=== PATIENT | male | born 1935 | race African-American/Black ===

== ENCOUNTER 2018-02-06 10:54 | Observation (INO) | payer OTHER ==
--- NOTE | 2018-02-06 11:06 | PDOC ---
History of Present Illness - General Chief Complaint: Syncope/Near Syncope Stated Complaint: SYNCOPE Time Seen by Provider: 02/06/18 10:58 - History of Present Illness Initial Comments: 02/06/18 11:14 The patient is an 82 year old male with PMH of HTN, HLD, DM who presents for evaluation of a pre-syncopal episode. The patient is accompanied by his who assists in providing the history. They note that they were eating breakfast when the patient's noted that he started to lean back and become very weak. She states that she went and caught the patient and lowered him to the floor and that he never lost consciousness. The patient states that he remembers the whole event and notes that he became extremely generally weak during the event. He states that his symptoms have somewhat improved since presenting to the ED. He otherwise denies fevers, chills, SOB, chest pain, headache, numbness, tingling, focal weakness, nausea, vomiting, abdominal pain, or changes with urination or bowel movements. Past History - Past Medical History Allergies/Adverse Reactions: Allergies Allergy/AdvReac Type Severity Reaction Status Date / Time No Known Allergies Allergy Verified 02/06/18 11:07 Home Medications: Ambulatory Orders Amlodipine Besylate 5 mg PO DAILY 02/06/18 Donepezil HCl 10 mg PO HS 02/06/18 Dorzolamide HCl [Trusopt] 10 ml OP ASDIR 02/06/18 Lisinopril [Prinivil -] 40 mg PO DAILY 02/06/18 Metformin HCl [Glucophage] 1,000 mg PO ASDIR 02/06/18 Simvastatin 40 mg PO HS 02/06/18 Terazosin HCl 10 mg PO HS 02/06/18 Review of Systems - Review of Systems Comments:: 02/06/18 11:18 Constitutional: Generalized Weakness. No fevers, chills, malaise HEENT: No Rhinorrhea, nasal congestion, visual changes Cardiovascular: Lightheadedness, Pre-Syncope. No chest pain, syncope, palpitations, Respiratory: No Cough, SOB, Hemoptysis, Gastrointestinal: No Abdominal pain, Nausea, Vomiting, Constipation, Diarrhea, Melena Genitourinary: No Dysuria, Frequency, Urgency, Hesitancy, Hematuria, Flank pain Musculoskeletal: No Myalgia, arthralgia Skin: No rashes, itching, bruising, pallor Neurologic: No Headache, Dizziness, Numbness, Focal Weakness, or Tingling Psychiatric: No Hallucinations. No SI or HI *Physical Exam - Physical Exam Comments: 02/06/18 11:19 General Appearance: Nourished. No Apparent Distress HEENT: EOMI, AMY. No Pharyngeal Erythema, Tonsillar Exudate, Tonsillar Erythema Neck: No Cervical Lymphadenopathy Respiratory/Chest: Lungs Clear, Normal Breath Sounds. No Crackles, Rales, Rhonchi, Wheezing Cardiovascular: Regular Rhythm, Regular Rate. No Murmur, Gallops, Rubs Gastrointestinal/Abdominal: Normal Bowel Sounds, Soft. No Guarding, Rebound, Tenderness Musculoskeletal: No CVA Tenderness Extremity: Normal Capillary Refill Integumentary: Normal Color, Dry, Warm Neurologic: it application support analyst II-XII NML intact, Fully Oriented, Alert, Normal Mood/Affect, Normal Response, Motor Strength 5/5. Normal Finger to Nose and Heel to Barrett Heart Score/ECG Review #1 ECG reviewed & interpreted by me at: 11:48 (STEMI) General ECG Interpretation: Sinus Rhythm, Normal Rate, Normal Intervals 02/06/18 11:49 ST elevations noted to leads V3-V6 STEMI #2 ECG reviewed & interpreted by me at: 14:16 General ECG Interpretation: Sinus Rhythm, Normal Rate, Normal Intervals Compared to previous ECG there are: No significant change 02/06/18 14:16 ST Elevations in leads V3-V6 No Changes from prior ED Treatment Course - LABORATORY CBC & Chemistry Diagram: 02/06/18 11:30 02/06/18 11:30 Medical Decision Making - Medical Decision Making 02/06/18 11:19 The patient is an 82 year old male with PMH of HTN, HLD, DM who presents for evaluation of a pre-syncopal episode. Differential includes but is not limited to: ACS, Arrhythmia, UTI, Infectious, Metabolic Derangement. Given the patient' s history and physical exam, we will obtain a cbc, cmp, troponin, chest plain film, ua, ekg to evaluate further. We will continue to closely monitor and reassess while here in the ED. The patient will be a likely admission for pre- syncope given his age and risk factors. 02/06/18 11:49 Patient noted to have ST elevations on EKG consistent with a STEMI. We will discuss the case with [facility] for transfer. 02/06/18 12:25 We discussed the case with the auto rebuilder at [facility] who reviewed the patient's EKG and does not believe the patient is experiencing a STEMI and does note require cardiac cath at this time. CBC is unremarkable. CMP demonstrates a potassium of 3.2, Calcium of 6.6, Troponin is negative. The patient will require tele admission for further monitoring and cardiology consultation. The patient remains asymptomatic on exam here in the ED. 02/06/18 14:15 We discussed the case with Dr. Max who is aware of the case and requests that we obtain an echo for further evaluation. We discussed the case with the hospitalist team who accepted the patient for admission. *DC/Admit/Observation/Transfer Diagnosis at time of Disposition: Syncope Qualifiers: Syncope type: unspecified Qualified Code(s): R55 - Syncope and collapse - Discharge Dispostion Condition at time of disposition: Fair Decision to Admit order: Yes - Referrals - Patient Instructions - Post Discharge Activity
--- NOTE | 2018-02-06 11:13 | PDOC ---
Attending Attestation - Resident Resident Name: Pardeep Purcell - ED Attending Attestation I have performed the following: I have examined & evaluated the patient, The case was reviewed & discussed with the resident, I agree w/resident's findings & plan, Exceptions are as noted - HPI HPI: 02/06/18 11:48 82 year old M c/ hx of HTN, DM, HLD BIBEMS for syncope. The patient was in his usual state of health. Was sitting at breakfast, when he suddenly had a brief syncopal episode. No chest pain or SOB or palpitations. Woke up and in his baseline. Called 911 and pt was brought to the ED. - Physicial Exam PE: 02/06/18 11:49 GENERAL: Awake, alert, and fully oriented, in no acute distress HEAD: No signs of trauma EYES: PERRLA, EOMI, sclera anicteric, conjunctiva clear ENT: Auricles normal inspection, hearing grossly normal, nares patent, NECK: Normal ROM, supple, LUNGS: Breath sounds equal, clear to auscultation bilaterally. No wheezes, and no crackles HEART: Regular rate and rhythm, normal S1 and S2, no murmurs, rubs or gallops ABDOMEN: Soft, nontender, No guarding, no rebound. No masses EXTREMITIES: Normal range of motion, no edema. No clubbing or cyanosis. No cords, erythema, or tenderness NEUROLOGICAL: Cranial nerves II through XII grossly intact. Normal speech SKIN: Warm, Dry, normal turgor, no rashes or lesions noted. - Medical Decision Making 02/06/18 11:49 Vital Signs Temp Pulse Resp BP Pulse Ox 97.9 F 57 L 16 137/73 98 02/06/18 11:08 02/06/18 11:08 02/06/18 11:08 02/06/18 11:08 02/06/18 11:08 Pt presents with syncope. ECG shows STEMI Code Red alerted and [facility] contacted Will transfer the patient stat. [facility] transfer contacted. 02/06/18 12:15 Case discussed with [facility] television director Dr. Barnard. ECG sent over to the doctor. At this time, no intervention required. He suspects that this is repolarization. Particularly given the no chest pain, recommends serial troponins and no transfer. Pt's initial troponin is negative. However, will admit patient given these symptoms. 02/06/18 12:30 Calcium noted to be 6.6. But corrected for hypoalbuminemia, it is 7.8. 02/06/18 15:06 Repletion of magnesium and potassium ordered. Heart Score/ECG Review #1 ECG reviewed & interpreted by me at: 11:45 02/06/18 11:46 NSR 65, normal axis, normal intervals, YESSICA II, avF, V3-V6, QTC 403 msec #2 ECG reviewed & interpreted by me at: 13:15 02/06/18 13:13 NSR 67, no std/yessica, TWI avL, normal axis, normal intervals, QTC 409 msec
[2018-02-06 11:43] LABS: BASO % 0.7 % (0-2.0); EOS % 2.2 % (0-4.5); HEMOGLOBIN 12.2 GM/dl (11.7-16.9); MCH 34.7 pg (25.7-33.7); MCHC 34.9 g/dl (32.0-35.9); MEAN CELL VOLUME 99.4 fl (80-96); MEAN PLT VOLUME 8.8 fl (7.5-11.1); MONO % 4.3 % (3.8-10.2); NEUT % 66.8 % (42.8-82.8); PLATELET COUNT 153 K/MM3 (134-434); RBC 3.52 M/mm3 (4.00-5.60); RDW 11.4 % (11.9-15.9); WHITE BLOOD COUNT 6.5 K/mm3 (4.0-10.8)
[2018-02-06 11:52] LABS: ALBUMIN 2.5 g/dl (3.5-5.0); ALK PHOS 53 U/L (32-92); ANION GAP 7 MMOL/L (8-16); BILIRUBIN,TOTAL 0.9 mg/dl (0.2-1.0); BLOOD UREA NITROGEN 15 mg/dl (7-18); CHLORIDE 112 mmol/L (98-107); CO2 18 mmol/L (22-28); CREATININE 0.7 mg/dl (0.6-1.3); GLUCOSE,RANDOM 200 mg/dl (74-106); POTASSIUM 3.2 mmol/L (3.5-5.1); SGOT/AST 16 U/L (10-42); SGPT/ALT 11 U/L (10-40); SODIUM 137 mmol/L (136-145); TOT PROT 4.9 g/dl (6.4-8.3)
[2018-02-06 11:55] LABS: CALCIUM 6.6 mg/dl (8.4-10.2)
[2018-02-06 13:45] LABS: MAGNESIUM 1.1 mg/dL (1.8-2.4); PHOSPHOROUS 2.9 mg/dl (2.5-4.6)
[2018-02-06] MEDS ORDERED: MAGNESIUM SULF 50% (8.12 MEQ/2 ML-1 GM VIAL) IVPB ONE (15:06)
[2018-02-06] MEDS ORDERED: POTASSIUM CHLORIDE TABS 20 MEQ TABLET.ER (FP) PO ONE ×2 (15:06→15:08)
[2018-02-06] MEDS ORDERED: MAGNESIUM SULF 50% (8.12 MEQ/2 ML-1 GM VIAL) ONE ×2 (15:07→15:08)
--- NOTE | 2018-02-06 15:44 | ECHO ---
Name: IVIS NAYLOR Exam:Adult Echocardiogram Study Date: 02/06/2018 02:20 PM Age: 82 yrs Reason For Study: SYNCOPE Height: 63 in Weight: 161 lb BSA: 1.8 m2 MMode/2D Measurements & Calculations IVSd: 1.2 cm Ao root diam: 3.0 cm LVIDd: 3.6 cm LA dimension: 2.2 cm LVIDs: 2.4 cm LVPWd: 1.2 cm EDV(Teich): 54.6 ml ESV(Teich): 19.7 ml Doppler Measurements & Calculations MV E max agustin: 69.9 cm/sec MV A max agustin: 100.2 cm/sec MV dec slope: 403.5 cm/sec2 MV E/A: 0.70 TR max agustin: 229.4 cm/sec PI end-d agustin: 99.4 cm/sec TR max P.5 mmHg Left Ventricle There is mild concentric left ventricular hypertrophy. Left ventricular systolic function is normal. Ejection Fraction = 55-60%. Right Ventricle The right ventricle is normal in size and function. Atria Normal left and right atrial size and function. Mitral Valve The mitral valve is normal in structure and function. There is no mitral valve stenosis. There is no mitral regurgitation noted. Tricuspid Valve The tricuspid valve is normal in structure and function. There is mild tricuspid regurgitation. Aortic Valve There is mild aortic sclerosis.;. No hemodynamically significant valvular aortic stenosis. Mild aorti c regurgitation. Pulmonic Valve The pulmonic valve is not well seen, but is grossly normal. There is no pulmonic valvular stenosis. Great Vessels The aortic root is normal size. Pericardium/Pleura There is no pericardial effusion. Interpretation Summary There is mild concentric left ventricular hypertrophy. Left ventricular systolic function is normal. Ejection Fraction = 55-60%. The right ventricle is normal in size and function. The mitral valve is normal in structure and function. There is mild tricuspid regurgitation. There is mild aortic sclerosis.; Mild aortic regurgitation. There is no pericardial effusion. MD Palmer *Susan 02/06/2018 03:44 PM
--- NOTE | 2018-02-06 17:12 | HP ---
CHIEF COMPLAINT: I almost passed out after eating breakfast [place] [facility] [place]ISTORY OF PRESENT ILLNESS: Patient is an 82 year old male with a significant past medical history of hypertension, hyperlipidemia, diabetes and left eye blindness. Patient and state that patient was in his usual state of health last night and early this morning. However, later in the morning patient consumed his breakfast and then noticed that he began to move his head up and down as if he was stretching his neck. then noticed that patient leaned back and became lethargic. He then vomited up his breakfast and became pale and lethargic. reports that patient did not lose consciousness. She states that she lowered him to the floor and called 911. His blood sugar was 176 during the episode. Patient recalls the event this morning and verbalizes feelings of weakness during the episode but denied any chest pain or shortness of breath. His symptoms have since improved and he is back to his baseline. During exam, patient was standing by the bedside and conversing with his family. Patient denies chills, SOB, chest pain, headache, numbness, tingling, focal weakness, nausea, vomiting, abdominal pain, or changes with urination or bowel movements. Patient was initially seen at [place] [facility] and was transferred to [facility] after he had 3 abnormal EKG readings which showed STEMI. In [place], a code red was alerted and [facility] cardiac cath was contacted. [facility] ER attending discussed case with [facility] IR Dr Barnard and EKG was reviewed. At that time, no transfer to [facility] was recommended as patient did not have have chest pain and his troponins remain negative. It was felt that patient likely had repolarization. EKGs: 1. NSR 65, normal axis, normal intervals, YESSICA II, avF, leads v3-v6, QTc 405 2. NSR 67, no std/yessica, TWI avL, normal axis, normal intervals, QTc 409 Recent Travel: none PAST MEDICAL HISTORY: hypertension, hyperlipidemia, diabetes and left eye blindness PAST SURGICAL HISTORY: Social History: Smoking: denies Alcohol: none reported Drugs: none Family History: Allergies No Known Allergies Allergy (Verified 02/06/18 11:07) HOME MEDICATIONS: Home Medications Medication Instructions Recorded Amlodipine Besylate 5 mg PO DAILY 02/06/18 Donepezil HCl 10 mg PO HS 02/06/18 Dorzolamide/Timolol/Pf 1 each OD BID 02/06/18 [Dorzolamide-Timolol 2%-0.5%] Latanoprost 0.005% Eye Drops 1 drop OD HS 02/06/18 [Xalatan 0.005% Eye Drops -] Lisinopril [Prinivil -] 40 mg PO DAILY 02/06/18 Metformin HCl [Glucophage] 1,000 mg PO DAILY 02/06/18 Simvastatin 40 mg PO HS 02/06/18 Terazosin HCl 10 mg PO HS 02/06/18 PHYSICAL EXAMINATION Vital Signs - 24 hr 02/06/18 02/06/18 02/06/18 11:08 12:53 15:00 Temperature 97.9 F Pulse Rate 57 L Pulse Rate [ 63 Apical] Respiratory 16 19 Rate Blood Pressure 137/73 Blood Pressure 109/64 [Arm] O2 Sat by Pulse 98 98 100 Oximetry (%) 02/06/18 15:01 Temperature 97.9 F Pulse Rate 73 Pulse Rate [ Apical] Respiratory 18 Rate Blood Pressure 136/62 Blood Pressure [Arm] O2 Sat by Pulse Oximetry (%) GENERAL: Awake, alert, and fully oriented, in no acute distress. HEAD: Normal with no signs of trauma. EYES: left eye blindness EARS, NOSE, THROAT: Ears normal, nares patent, oropharynx clear without exudates. Moist mucous membranes. NECK: Normal range of motion, supple without lymphadenopathy, JVD, or masses. LUNGS: Breath sounds equal, clear to auscultation bilaterally. No wheezes, and no crackles. No accessory muscle use. HEART: Regular rate and rhythm ABDOMEN: Soft, nontender, not distended, normoactive bowel sounds, no guarding, no rebound, no masses. No hepatomegaly or splenomegaly. MUSCULOSKELETAL: Normal range of motion at all joints. No bony deformities or tenderness. No CVA tenderness. UPPER EXTREMITIES: No peripheral edema. LOWER EXTREMITIES: No peripheral edema. NEUROLOGICAL: Normal speech. Normal gait. PSYCHIATRIC: Cooperative. Good eye contact. Appropriate mood and affect. SKIN: Warm, dry, normal turgor, no rashes or lesions noted, normal capillary refill. Laboratory Results - last 24 hr 02/06/18 02/06/18 02/06/18 11:30 11:30 11:30 WBC 6.5 RBC 3.52 L Hgb 12.2 Hct 35.0 L MCV 99.4 H MCH 34.7 H MCHC 34.9 RDW 11.4 L Plt Count 153 MPV 8.8 Absolute Neuts (auto) 4.4 Neutrophils % 66.8 Lymphocytes % 26.0 Monocytes % 4.3 Eosinophils % 2.2 Basophils % 0.7 Sodium 137 Potassium 3.2 L Chloride 112 H Carbon Dioxide 18 L Anion Gap 7 L BUN 15 Creatinine 0.7 Creat Clearance w eGFR > 60 Random Glucose 200 H Calcium 6.6 L* Phosphorus Magnesium Total Bilirubin 0.9 AST 16 ALT 11 Alkaline Phosphatase 53 Creatine Kinase Troponin I < 0.03 Total Protein 4.9 L Albumin 2.5 L 02/06/18 02/06/18 02/06/18 11:30 12:55 14:51 WBC RBC Hgb Hct MCV MCH MCHC RDW Plt Count MPV Absolute Neuts (auto) Neutrophils % Lymphocytes % Monocytes % Eosinophils % Basophils % Sodium Potassium Chloride Carbon Dioxide Anion Gap BUN Creatinine Creat Clearance w eGFR Random Glucose Calcium Phosphorus 2.9 Magnesium 1.1 L Total Bilirubin AST ALT Alkaline Phosphatase Creatine Kinase 49 Troponin I < 0.03 Total Protein Albumin ASSESSMENT/PLAN: Patient is an 82 year old male with a significant past medical history of hypertension, hyperlipidemia, diabetes and left eye blindness. Patient and state that patient was in his usual state of health last night and early this morning. However, later in the morning patient consumed his breakfast and then noticed that he began to move his head up and down as if he was stretching his neck. then noticed that patient leaned back and became lethargic. He then vomited up his breakfast and became pale and lethargic. reports that patient did not lose consciousness. She states that she lowered him to the floor and called 911. His blood sugar was 176 during the episode. Patient was initially seen at [place] [facility] and was transferred to [facility] after he had 3 abnormal EKG readings which showed STEMI. In [place], a code red was alerted and [facility] cardiac cath was contacted. [facility] ER attending discussed case with [facility] ANA Barnard and EKG was reviewed. At that time, no transfer to [facility] was recommended as patient did not have have chest pain and his troponins remain negative. It was felt that patient likely had repolarization. imagin. NSR 65, normal axis, normal intervals, YESSICA II, avF, leads v3-v6, QTc 405 2. NSR 67, no std/yessica, TWI avL, normal axis, normal intervals, QTc 409 Syncope and collapse Abnormal serial EKGs Monitor on tele, cardiology consulted and notified by the ED physician at [facility] Monitor bgms serial ekgs Cardiology abnormal ekgs No c/o of chest pain or shortness of breath Patient denies any dizziness, jaw pain or nausea/vomiting Cardiology consulted Continue to monitor trops Electrolyte imbalance Hypocalcemia corrected at 7.8. add calcium supplements Magnesium 1.1, repleted. repeat labs ordered for tonight Potassium repeat tonight. Endocrine Diabetes hmga1c in a.m hold metformin, start Novolog fen tolerating po monitor electrolytes diabetic diet prophy ambulation add heparin if pt los >48 hrs full code Visit type - Emergency Visit Emergency Visit: Yes ED Registration Date: 02/06/18 Care time: The patient presented to the Emergency Department on the above date and was hospitalized for further evaluation of their emergent condition. - New Patient This patient is new to me today: Yes Date on this admission: 02/06/18 - Critical Care Critical Care patient: No
[2018-02-06 18:17] VITALS: BMI 20.4
--- NOTE | 2018-02-06 18:36 | CON.CARD ---
Consult Consult Specialty:: cardiology Reason for Consultation:: syncope - History of Present Illness Chief Complaint: Pt is A&Ox3; surrounded by and children; asymptomatic presently. History of Present Illness: The patient is an 82 year old black male (b. [place]), with PMH of HTN, HLD, DM , left eye blindness (hx cataract surgery; ?glaucoma, diabetic disease-->left eye blindness) who presents for evaluation of a pre-syncopal episode. The patient is accompanied by his who assists in providing the history. They note that they were eating breakfast when the patient's noted that he started to lean back and become very weak. She states that she went and caught the patient and lowered him to the floor; it is uncertain whether he lost consciousness. The patient states that he remembers the whole event and notes that he became extremely generally weak during the event. He states that his symptoms have somewhat improved since presenting to the ED. He otherwise denies fevers, chills, SOB, chest pain, headache, numbness, tingling, focal weakness, nausea, vomiting, abdominal pain, or changes with urination or bowel movements. 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 - History Source History Provided By: Patient, Family Member, Medical Record Limitations to Obtaining History: No Limitations - Past Medical History HEALTH CENTER ASSISTANT: Yes: Other (memory lapses-->Aricept; left eye blindness) Cardio/Vascular: Yes: Aortic Insufficiency, CHF (diastolic), HTN Pulmonary: No: Asthma Heme/Onc: Yes: Anemia Psych: Yes: Other (memory lapses) - Past Surgical History Past Surgical History: Yes: Cataract Removal - Alcohol/Substance Use Hx Alcohol Use: No - Smoking History Smoking history: Never smoked Have you smoked in the past 12 months: No Home Medications - Allergies Allergies/Adverse Reactions: Allergies Allergy/AdvReac Type Severity Reaction Status Date / Time No Known Allergies Allergy Verified 02/06/18 11:07 - Home Medications Home Medications: Ambulatory Orders Amlodipine Besylate 5 mg PO DAILY 02/06/18 Donepezil HCl 10 mg PO HS 02/06/18 Dorzolamide/Timolol/Pf [Dorzolamide-Timolol 2%-0.5%] 1 each OD BID 02/06/18 Latanoprost 0.005% Eye Drops [Xalatan 0.005% Eye Drops -] 1 drop OD HS 02/06/18 Lisinopril [Prinivil -] 40 mg PO DAILY 02/06/18 Metformin HCl [Glucophage] 1,000 mg PO DAILY 02/06/18 Simvastatin 40 mg PO HS 02/06/18 Terazosin HCl 10 mg PO HS 02/06/18 Family Disease History - Family Disease History Family History: Denies Review of Systems - Review of Systems Constitutional: reports: Weakness Eyes: reports: Other (left eye blindness) HENT: reports: No Symptoms Neck: reports: No Symptoms Cardiovascular: reports: No Symptoms Respiratory: reports: No Symptoms Gastrointestinal: reports: No Symptoms Genitourinary: reports: No Symptoms Breasts: reports: No Symptoms Reported Musculoskeletal: reports: No Symptoms Integumentary: reports: No Symptoms Neurological: reports: Weakness Endocrine: reports: No Symptoms Hematology/Lymphatic: reports: No Symptoms Psychiatric: reports: No Symptoms - Risk Factors Known Risk Factors: Yes: Age, Diabetes Mellitus, Gender, Hypercholesterolemia, Hypertension, Physical Inactivity Vital Signs: Vital Signs Temperature 97.7 F 02/06/18 18:13 Pulse Rate 70 02/06/18 18:13 Respiratory Rate 18 02/06/18 18:13 Blood Pressure 134/73 02/06/18 18:13 O2 Sat by Pulse Oximetry (%) 100 02/06/18 18:00 Constitutional: Yes: Well Nourished, Calm Eyes: Yes: Other (left eye closed; blind in left eye) HENT: Yes: WNL Neck: Yes: WNL Respiratory: Yes: WNL Gastrointestinal: Yes: Soft Renal/: No: Anuria Cardiovascular: Yes: Regular Rate and Rhythm JVD: No Carotid Bruit: No PMI: Non-Displaced Heart Sounds: Yes: S1, S2 Murmur: Yes: Diastolic Murmur, Grade 1 Musculoskeletal: Yes: Muscle Weakness Extremities: Yes: WNL Edema: No Peripheral Pulses WNL: Yes Integumentary: Yes: WNL Neurological: Yes: Alert, Weakness Psychiatric: Yes: Alert - Other Data Labs, Other Data: CBC, BMP 02/06/18 11:30 Troponin, BNP 02/06/18 02/06/18 11:30 14:51 Troponin I < 0.03 < 0.03 Troponin, BNP 02/06/18 02/06/18 11:30 14:51 Troponin I < 0.03 < 0.03 Abnormal Lab Results 02/06/18 02/06/18 02/06/18 11:30 11:30 12:55 RBC 3.52 L Hct 35.0 L MCV 99.4 H MCH 34.7 H RDW 11.4 L Potassium 3.2 L Chloride 112 H Carbon Dioxide 18 L Anion Gap 7 L BUN Random Glucose 200 H Calcium 6.6 L* Magnesium 1.1 L Total Protein 4.9 L Albumin 2.5 L 02/06/18 18:00 RBC Hct MCV MCH RDW Potassium Chloride Carbon Dioxide Anion Gap 7 L BUN 22 H Random Glucose 146 H Calcium Magnesium Total Protein Albumin Ejection Fraction %: LVEF > or = 40 % Imaging - Results Chest X-ray: Image Reviewed (no acute cardiopulmonary changes; spinal arthritis) Ultrasound: Report Reviewed (ECHO: normal LVEF; mild LVH; mild AR) EKG: Image Reviewed (NSR) Problem List - Problems (1) Pre-syncope Assessment/Plan: TNI 0.03 ECHO: normal LVEF; mild LVH; mild AR and TR. F/u on telemetry; f/u EKG. Orthostatic vital signs. Avoid dehydration. Stress test when stable (multiple CAD risks; sedentary; now with pre-syncope). Code(s): R55 - SYNCOPE AND COLLAPSE (2) HTN (hypertension) Assessment/Plan: on lisinopril and amlodipine. Code(s): I10 - ESSENTIAL (PRIMARY) HYPERTENSION (3) Hyperlipidemia Assessment/Plan: on statin; f/u lipid profile. Code(s): E78.5 - HYPERLIPIDEMIA, UNSPECIFIED (4) Diabetes Code(s): E11.9 - TYPE 2 DIABETES MELLITUS WITHOUT COMPLICATIONS (5) Sedentary lifestyle Code(s): Z91.89 - [facility] PERSONAL RISK FACTORS, NOT ELSEWHERE CLASSIFIED (6) Blindness of one eye Code(s): H54.40 - BLINDNESS, ONE EYE, UNSPECIFIED EYE (7) Anemia Code(s): D64.9 - ANEMIA, UNSPECIFIED (8) Spinal arthritis Assessment/Plan: on Vit D and calcium Code(s): M47.819 - SPONDYLOSIS WITHOUT MYELOPATHY OR RADICULOPATHY, SITE [facility]
[2018-02-06 19:32] LABS: ALBUMIN 3.7 g/dl (3.4-5.0); ALK PHOS 96 U/L (45-117); BILIRUBIN,TOTAL 0.7 mg/dL (0.2-1); BLOOD UREA NITROGEN 22 mg/dL (7-18); CALCIUM 9.8 mg/dL (8.5-10.1); CHLORIDE 105 mmol/L (98-107); CREATININE 0.9 mg/dL (0.55-1.3); GLUCOSE,RANDOM 146 mg/dL (74-106); MAGNESIUM 2.4 mg/dL (1.8-2.4); POTASSIUM 4.5 mmol/L (3.5-5.1); SGOT/AST 15 U/L (15-37); SGPT/ALT 22 U/L (13-61); SODIUM 136 mmol/L (136-145); TOT PROT 7.5 g/dl (6.4-8.2)
[2018-02-06 19:33] LABS: ANION GAP 7 MMOL/L (8-16); CO2 25 mmol/L (21-32)
[2018-02-06] MEDS: ATORVASTATIN CA 20 MG TABLET (FP) PO SCH (21:49)
[2018-02-06] MEDS: TERAZOSIN HCL 5 MG CAPSULE PO SCH (21:49)
[2018-02-06] MEDS: DONEPEZIL HCL 10 MG TABLET (FP) PO SCH (21:50)
[2018-02-06] MEDS: INSULIN SLIDING SCALE (NOVOLOG) 1 VIAL SQ SCH (21:50)
[2018-02-06] MEDS: CALCIUM 500MG/VIT-D 200 UNITS COMBO TABLET (FP) PO SCH (21:50)
[2018-02-06] MEDS: LATANOPROST 0.005% OPHTH SOLN 2.5ML BOTTLE OD SCH (21:56)
[2018-02-06] MEDS ORDERED: PATIENT'S OWN MEDICATION (NON-FORMULARY) (Dorzolamide/Timolol/Pf [Dorzolamide-Timolol 2%-0 OD SCH (22:00)
[2018-02-07] MEDS: INSULIN SLIDING SCALE (NOVOLOG) 1 VIAL SQ SCH ×4 (06:26→21:15)
[2018-02-07 07:28] LABS: BASO % 0.5 % (0-2.0); EOS % 1.7 % (0-4.5); HEMATOCRIT 35.1 % (35.4-49); HEMOGLOBIN 12.3 GM/dL (11.7-16.9); LYMPH % 46.7 % (8-40); MCH 34.5 pg (25.7-33.7); MEAN CELL VOLUME 98.7 fl (80-96); MEAN PLT VOLUME 9.1 fl (7.5-11.1); MONO % 7.7 % (3.8-10.2); NEUT % 43.4 % (42.8-82.8); PLATELET COUNT 168 K/MM3 (134-434); RBC 3.55 M/mm3 (4.00-5.60); RDW 12.2 % (11.9-15.9); WHITE BLOOD COUNT 5.8 K/mm3 (4.0-10.0)
[2018-02-07 08:47] LABS: CO2 26 mmol/L (21-32); CREATININE 0.8 mg/dL (0.55-1.3)
[2018-02-07 08:48] LABS: ALBUMIN 3.5 g/dl (3.4-5.0)
[2018-02-07 09:17] LABS: ALK PHOS 83 U/L (45-117); ANION GAP 6 MMOL/L (8-16); BLOOD UREA NITROGEN 19 mg/dL (7-18); CALCIUM 9.3 mg/dL (8.5-10.1); CHLORIDE 106 mmol/L (98-107); CHOLESTEROL 117 mg/dL (50-200); GLUCOSE,RANDOM 145 mg/dL (74-106); HDL CHOLESTEROL 59 mg/dL (40-60); MAGNESIUM 1.7 mg/dL (1.8-2.4); POTASSIUM 4.3 mmol/L (3.5-5.1); SGOT/AST 13 U/L (15-37); SGPT/ALT 18 U/L (13-61); SODIUM 139 mmol/L (136-145); TRIGLYCERIDES 53 mg/dL (0-150)
[2018-02-07] MEDS ORDERED: MAGNESIUM OXIDE 400 MG TABLET (FP) PO ONE (09:54)
[2018-02-07] MEDS: CALCIUM 500MG/VIT-D 200 UNITS COMBO TABLET (FP) PO SCH ×2 (10:19→21:13)
[2018-02-07] MEDS: LISINOPRIL 20 MG TABLET (FP) PO SCH (10:19)
[2018-02-07] MEDS: amLODIPine BESYLATE 5 MG TABLET (FP) PO SCH (10:19)
--- NOTE | 2018-02-07 11:15 | PN ---
Progress Note (short form) - Note Progress Note: Subjective: --No acute events overnight Objective: Vital Signs 02/07/18 02/07/18 06:00 10:00 Temperature 97.9 F 98.0 F Pulse Rate 68 71 Respiratory 20 16 Rate Blood Pressure 132/72 126/59 L O2 Sat by Pulse 98 Oximetry (%) Gen: well appearing elderly male sitting upright in NAD HEENT: NC/AT Cardiac: S1/S2 no murmurs Pulm: clear breath sounds bilaterally Ext: WWP. No edema ECG: NSR 1st degree AVB. Nonspecific ST-T changes Echocardiogram: LVEF 55-60% with no regional wall motion abnormality. Active Medications Amlodipine Besylate (Norvasc -) 5 mg PO DAILY [facility] Last Admin: 02/07/18 10:19 Dose: 5 mg Atorvastatin Calcium (Lipitor -) 20 mg PO HS [facility] Last Admin: 02/06/18 21:49 Dose: 20 mg Calcium Carbonate/Cholecalciferol (Os-Scooter 500+D -) 1 tab PO BID [facility] Last Admin: 02/07/18 10:19 Dose: 1 tab Donepezil HCl (Aricept -) 10 mg PO [facility] Last Admin: 02/06/18 21:50 Dose: 10 mg Insulin Aspart (Novolog Vial Sliding Scale -) 1 vial SQ [facility]; Protocol Last Admin: 02/07/18 06:26 Dose: 2 units Latanoprost (Xalatan 0.005% Eye Drops -) 1 drop OD [facility] Last Admin: 02/06/18 21:56 Dose: 1 drop Lisinopril (Prinivil) 40 mg PO DAILY [facility] Last Admin: 02/07/18 10:19 Dose: 40 mg Non-Formulary Medication (Dorzolamide/Timolol/Pf [Dorzolamide-Timolol 2%-0.5%]) 1 each OD BID [facility] Terazosin HCl (Hytrin -) 10 mg PO 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 Currently hemodynamically stable with echocardiogram revealing normal systolic function, ruled out for acute coronary syndrome. #Pre-syncope/weakness Workup: --ECG normal sinus with 1st degree AVB, nonspecific ST-T changes --trop negative X4 --telemetry without significant event Treatment: --continue to monitor --please keep NPO on Friday night for nuclear stress test on Friday #HTN; continue lisinopril and amlodipine #HL; continue atorvastatin Pola Mckeon MD
--- NOTE | 2018-02-07 13:25 | EKG ---
Test Reason : Blood Pressure : / mmHG Vent. Rate : 062 BPM Atrial Rate : 062 BPM P-R Int : 210 ms QRS Dur : 086 ms QT Int : 390 ms P-R-T Axes : 053 051 068 degrees QTc Int : 395 ms SINUS RHYTHM WITH 1ST DEGREE A-V BLOCK NONSPECIFIC ST AND T WAVE ABNORMALITY ABNORMAL ECG WHEN COMPARED WITH ECG OF 06-FEB-2018 13:14, NO SIGNIFICANT CHANGE WAS FOUND Confirmed by JESSICA LEAL, JUDD ([id number]) on 02/07/2018 1:25:22 PM Referred By: Haley KNIGHT Confirmed By:JUDD LOPEZ MD
--- NOTE | 2018-02-07 13:28 | EKG ---
Test Reason : Blood Pressure : / mmHG Vent. Rate : 067 BPM Atrial Rate : 067 BPM P-R Int : 204 ms QRS Dur : 086 ms QT Int : 388 ms P-R-T Axes : 069 049 078 degrees QTc Int : 409 ms NORMAL SINUS RHYTHM ST ELEVATION CONSIDER LATERAL INJURY OR ACUTE INFARCT ACUTE [place] / STEMI ABNORMAL ECG WHEN COMPARED WITH ECG OF 06-FEB-2018 11:46, NO SIGNIFICANT CHANGE WAS FOUND Confirmed by JUDD LOPEZ MD ([id number]) on 02/07/2018 1:27:52 PM Referred By: ABHINAV Confirmed By:JUDD LOPEZ MD
--- NOTE | 2018-02-07 13:28 | EKG ---
Test Reason : Blood Pressure : / mmHG Vent. Rate : 065 BPM Atrial Rate : 065 BPM P-R Int : 204 ms QRS Dur : 086 ms QT Int : 388 ms P-R-T Axes : 068 053 074 degrees QTc Int : 403 ms NORMAL SINUS RHYTHM ST ELEVATION CONSIDER LATERAL INJURY OR ACUTE INFARCT ACUTE [place] / STEMI ABNORMAL ECG NO PREVIOUS ECGS AVAILABLE Confirmed by JESSICA LEAL, JUDD ([id number]) on 02/07/2018 1:28:16 PM Referred By: ABHINAV Confirmed By:JUDD LOPEZ MD
--- NOTE | 2018-02-07 16:55 | PN ---
Physical Exam: SUBJECTIVE: Patient seen and examined at the bedside. sitting up eating, family present wants to go home. but willing to stay for stress test friday OBJECTIVE: mag, K and calcium low. supplements added pt for stress test friday, npo at midnight friday Vital Signs Period Temp Pulse Resp BP Sys/Hester Pulse Ox Last 24 Hr 97.2 F-98.0 F 63-73 16-20 119-168/59-85 98-100 GENERAL: Awake, alert, and fully oriented, in no acute distress. HEAD: Normal with no signs of trauma. EYES: left eye blindness EARS, NOSE, THROAT: Ears normal, nares patent, oropharynx clear without exudates. Moist mucous membranes. NECK: Normal range of motion, supple without lymphadenopathy, JVD, or masses. LUNGS: Breath sounds equal, clear to auscultation bilaterally. No wheezes, and no crackles. No accessory muscle use. HEART: Regular rate and rhythm ABDOMEN: Soft, nontender, not distended, normoactive bowel sounds, no guarding, no rebound, no masses. No hepatomegaly or splenomegaly. MUSCULOSKELETAL: Normal range of motion at all joints. No bony deformities or tenderness. No CVA tenderness. UPPER EXTREMITIES: No peripheral edema. LOWER EXTREMITIES: No peripheral edema. NEUROLOGICAL: Normal speech. Normal gait. PSYCHIATRIC: Cooperative. Good eye contact. Appropriate mood and affect. SKIN: Warm, dry, normal turgor, no rashes or lesions noted, normal capillary refill. Laboratory Results - last 24 hr 02/06/18 02/06/18 02/07/18 18:00 21:29 05:37 WBC RBC Hgb Hct MCV MCH MCHC RDW Plt Count MPV Absolute Neuts (auto) Neutrophils % Lymphocytes % Monocytes % Eosinophils % Basophils % Nucleated RBC % Sodium 136 Potassium 4.5 Chloride 105 Carbon Dioxide 25 Anion Gap 7 L BUN 22 H Creatinine 0.9 Creat Clearance w eGFR > 60 POC Glucometer 250 156 Random Glucose 146 H Hemoglobin A1c % Calcium 9.8 Magnesium 2.4 Total Bilirubin 0.7 AST 15 ALT 22 Alkaline Phosphatase 96 Troponin I < 0.02 Total Protein 7.5 Albumin 3.7 Triglycerides Cholesterol Total LDL Cholesterol HDL Cholesterol TSH 02/07/18 02/07/18 02/07/18 06:00 06:00 06:00 WBC 5.8 RBC 3.55 L Hgb 12.3 Hct 35.1 L MCV 98.7 H MCH 34.5 H MCHC 35.0 RDW 12.2 Plt Count 168 MPV 9.1 Absolute Neuts (auto) 2.5 Neutrophils % 43.4 Lymphocytes % 46.7 H Monocytes % 7.7 Eosinophils % 1.7 Basophils % 0.5 Nucleated RBC % 0 Sodium 139 Potassium 4.3 Chloride 106 Carbon Dioxide 26 Anion Gap 6 L BUN 19 H Creatinine 0.8 Creat Clearance w eGFR > 60 POC Glucometer Random Glucose 145 H Hemoglobin A1c % 8.0 H Calcium 9.3 Magnesium 1.7 L Total Bilirubin 1.0 AST 13 L ALT 18 Alkaline Phosphatase 83 Troponin I < 0.02 Total Protein 7.0 Albumin 3.5 Triglycerides 53 Cholesterol 117 Total LDL Cholesterol 52 HDL Cholesterol 59 TSH 1.27 02/07/18 12:06 WBC RBC Hgb Hct MCV MCH MCHC RDW Plt Count MPV Absolute Neuts (auto) Neutrophils % Lymphocytes % Monocytes % Eosinophils % Basophils % Nucleated RBC % Sodium Potassium Chloride Carbon Dioxide Anion Gap BUN Creatinine Creat Clearance w eGFR POC Glucometer 272 Random Glucose Hemoglobin A1c % Calcium Magnesium Total Bilirubin AST ALT Alkaline Phosphatase Troponin I Total Protein Albumin Triglycerides Cholesterol Total LDL Cholesterol HDL Cholesterol TSH Active Medications Generic Name Dose Route Start Last Admin Trade Name Freq PRN Reason Stop Dose Admin Amlodipine Besylate 5 mg 02/07/18 10:00 02/07/18 10:19 Norvasc - PO 5 mg DAILY [facility] Administration Atorvastatin Calcium 20 mg 02/06/18 22:00 02/06/18 21:49 Lipitor - PO 20 mg HS [facility] Administration Calcium Carbonate/Cholecalciferol 1 tab 02/06/18 22:00 02/07/18 10:19 Os-Scooter 500+D - PO 1 tab BID [facility] Administration Donepezil HCl 10 mg 02/06/18 22:00 02/06/18 21:50 Aricept - PO 10 mg HS [facility] Administration Insulin Aspart 1 vial 02/06/18 22:00 02/07/18 16:51 Novolog Vial Sliding Scale - SQ Not Given ACHS [facility] Protocol Latanoprost 1 drop 02/06/18 22:00 02/06/18 21:56 Xalatan 0.005% Eye Drops - OD 1 drop HS [facility] Administration Lisinopril 40 mg 02/07/18 10:00 02/07/18 10:19 Prinivil PO 40 mg DAILY [facility] Administration Non-Formulary Medication 1 each 02/06/18 22:00 Dorzolamide/Timolol/Pf [Dorzolamide-Timolol 2%-0.5%] OD BID [facility] Terazosin HCl 10 mg 02/06/18 22:00 02/06/18 21:49 Hytrin - PO 10 mg HS [facility] Administration ASSESSMENT/PLAN: Patient is an 82 year old male with a significant past medical history of hypertension, hyperlipidemia, diabetes and left eye blindness. Patient and state that patient was in his usual state of health last night and early this morning. However, later in the morning patient consumed his breakfast and then noticed that he began to move his head up and down as if he was stretching his neck. then noticed that patient leaned back and became lethargic. He then vomited up his breakfast and became pale and lethargic. reports that patient did not lose consciousness. She states that she lowered him to the floor and called 911. His blood sugar was 176 during the episode. Patient was initially seen at [place] [facility] and was transferred to [facility] after he had 3 abnormal EKG readings which showed STEMI. In [place], a code red was alerted and [facility] cardiac cath was contacted. [facility] ER attending discussed case with [facility] Dr Barnard and EKG was reviewed. At that time, no transfer to [facility] was recommended as patient did not have have chest pain and his troponins remain negative. It was felt that patient likely had repolarization. imagin. NSR 65, normal axis, normal intervals, YESSICA II, avF, leads v3-v6, QTc 405 2. NSR 67, no std/yessica, TWI avL, normal axis, normal intervals, QTc 409 Syncope and collapse Abnormal serial EKGs No events on tele. continue to monitor. trops negative Monitor bgms serial ekgs Cardiology abnormal ekgs No c/o of chest pain or shortness of breath Patient denies any dizziness, jaw pain or nausea/vomiting Cardiology consulted and following patient for stress test friday Electrolyte imbalance Hypocalcemia, resolved hypomag, supplemented hypokalemia, resolved. Endocrine Diabetes hmga1c in a.m hold metformin, start Novolog fen tolerating po monitor electrolytes diabetic diet prophy ambulation add heparin if pt los >48 hrs full code Visit type - Emergency Visit Emergency Visit: Yes ED Registration Date: 02/06/18 Care time: The patient presented to the Emergency Department on the above date and was hospitalized for further evaluation of their emergent condition. - New Patient This patient is new to me today: No - Critical Care Critical Care patient: No - Discharge Referral Referred to [facility] Med P.C.: No
[2018-02-07] MEDS ORDERED: PT OWN MED DRAWER 7, Y5N ONE ×2 (21:06→21:14)
[2018-02-07] MEDS: ATORVASTATIN CA 20 MG TABLET (FP) PO SCH (21:13)
[2018-02-07] MEDS: TERAZOSIN HCL 5 MG CAPSULE PO SCH (21:13)
[2018-02-07] MEDS: DONEPEZIL HCL 10 MG TABLET (FP) PO SCH (21:15)
[2018-02-07] MEDS: LATANOPROST 0.005% OPHTH SOLN 2.5ML BOTTLE OD SCH (21:15)
[2018-02-08 06:25] LABS: BASO % 0.6 % (0-2.0); EOS % 1.7 % (0-4.5); HEMATOCRIT 36.5 % (35.4-49); HEMOGLOBIN 11.9 GM/dL (11.7-16.9); LYMPH % 39.5 % (8-40); MCH 32.6 pg (25.7-33.7); MCHC 32.7 g/dl (32.0-35.9); MEAN CELL VOLUME 99.7 fl (80-96); MEAN PLT VOLUME 8.9 fl (7.5-11.1); MONO % 6.2 % (3.8-10.2); PLATELET COUNT 163 K/MM3 (134-434); RBC 3.66 M/mm3 (4.00-5.60); RDW 12.3 % (11.9-15.9); WHITE BLOOD COUNT 6.8 K/mm3 (4.0-10.0)
[2018-02-08] MEDS: INSULIN SLIDING SCALE (NOVOLOG) 1 VIAL SQ SCH ×4 (06:38→21:15)
[2018-02-08 06:57] LABS: ALBUMIN 3.4 g/dl (3.4-5.0); ALK PHOS 73 U/L (45-117); ANION GAP 9 MMOL/L (8-16); BILIRUBIN,TOTAL 1.4 mg/dL (0.2-1); BLOOD UREA NITROGEN 22 mg/dL (7-18); CALCIUM 9.6 mg/dL (8.5-10.1); CHLORIDE 105 mmol/L (98-107); CO2 24 mmol/L (21-32); CREATININE 0.8 mg/dL (0.55-1.3); GLUCOSE,RANDOM 122 mg/dL (74-106); MAGNESIUM 1.7 mg/dL (1.8-2.4); SGOT/AST 13 U/L (15-37); SGPT/ALT 20 U/L (13-61); SODIUM 137 mmol/L (136-145)
[2018-02-08] MEDS ORDERED: MAGNESIUM OXIDE 400 MG TABLET (FP) PO ONE (08:45)
[2018-02-08] MEDS ORDERED: MAGNESIUM OXIDE 400 MG TABLET (FP) ONE (09:07)
[2018-02-08] MEDS: amLODIPine BESYLATE 5 MG TABLET (FP) PO SCH (09:57)
[2018-02-08] MEDS: CALCIUM 500MG/VIT-D 200 UNITS COMBO TABLET (FP) PO SCH ×2 (09:57→21:10)
[2018-02-08] MEDS: LISINOPRIL 20 MG TABLET (FP) PO SCH (09:58)
--- NOTE | 2018-02-08 10:14 | PN ---
Physical Exam: SUBJECTIVE: Patient seen and examined at the bedside. sitting up eating, family present wants to go home. but willing to stay for stress test friday OBJECTIVE: pt for stress test friday, npo at midnight friday Vital Signs Period Temp Pulse Resp BP Sys/Hester Pulse Ox Last 24 Hr 97.4 F-97.9 F 63-79 18-20 119-145/59-91 99-99 GENERAL: Awake, alert, and fully oriented, in no acute distress. HEAD: Normal with no signs of trauma. EYES: left eye blindness EARS, NOSE, THROAT: Ears normal, nares patent, oropharynx clear without exudates. Moist mucous membranes. NECK: Normal range of motion, supple without lymphadenopathy, JVD, or masses. LUNGS: Breath sounds equal, clear to auscultation bilaterally. No wheezes, and no crackles. No accessory muscle use. HEART: Regular rate and rhythm ABDOMEN: Soft, nontender, not distended, normoactive bowel sounds, no guarding, no rebound, no masses. No hepatomegaly or splenomegaly. MUSCULOSKELETAL: Normal range of motion at all joints. No bony deformities or tenderness. No CVA tenderness. UPPER EXTREMITIES: No peripheral edema. LOWER EXTREMITIES: No peripheral edema. NEUROLOGICAL: Normal speech. Normal gait. PSYCHIATRIC: Cooperative. Good eye contact. Appropriate mood and affect. SKIN: Warm, dry, normal turgor, no rashes or lesions noted, normal capillary refill. Laboratory Results - last 24 hr 02/07/18 02/07/18 02/07/18 12:06 16:50 20:43 WBC RBC Hgb Hct MCV MCH MCHC RDW Plt Count MPV Absolute Neuts (auto) Neutrophils % Lymphocytes % Monocytes % Eosinophils % Basophils % Nucleated RBC % Sodium Potassium Chloride Carbon Dioxide Anion Gap BUN Creatinine Creat Clearance w eGFR POC Glucometer 272 123 198 Random Glucose Calcium Magnesium Total Bilirubin AST ALT Alkaline Phosphatase Total Protein Albumin 02/08/18 02/08/18 02/08/18 05:24 06:00 06:00 WBC 6.8 RBC 3.66 L Hgb 11.9 Hct 36.5 MCV 99.7 H MCH 32.6 MCHC 32.7 RDW 12.3 Plt Count 163 MPV 8.9 Absolute Neuts (auto) 3.5 Neutrophils % 52.0 Lymphocytes % 39.5 Monocytes % 6.2 Eosinophils % 1.7 Basophils % 0.6 Nucleated RBC % 0 Sodium 137 Potassium 4.0 Chloride 105 Carbon Dioxide 24 Anion Gap 9 BUN 22 H Creatinine 0.8 Creat Clearance w eGFR > 60 POC Glucometer 118 Random Glucose 122 H Calcium 9.6 Magnesium 1.7 L Total Bilirubin 1.4 H AST 13 L ALT 20 Alkaline Phosphatase 73 Total Protein 7.0 Albumin 3.4 Active Medications Generic Name Dose Route Start Last Admin Trade Name Freq PRN Reason Stop Dose Admin Amlodipine Besylate 5 mg 02/07/18 10:00 02/08/18 09:57 Norvasc - PO 5 mg DAILY [facility] Administration Atorvastatin Calcium 20 mg 02/06/18 22:00 02/07/18 21:13 Lipitor - PO 20 mg HS [facility] Administration Calcium Carbonate/Cholecalciferol 1 tab 02/06/18 22:00 02/08/18 09:57 Os-Scooter 500+D - PO 1 tab BID [facility] Administration Donepezil HCl 10 mg 02/06/18 22:00 02/07/18 21:15 Aricept - PO 10 mg HS [facility] Administration Insulin Aspart 1 vial 02/06/18 22:00 02/08/18 06:38 Novolog Vial Sliding Scale - SQ Not Given ACHS [facility] Protocol Latanoprost 1 drop 02/06/18 22:00 02/07/18 21:15 Xalatan 0.005% Eye Drops - OD 1 drop HS [facility] Administration Lisinopril 40 mg 02/07/18 10:00 02/08/18 09:58 Prinivil PO 40 mg DAILY [facility] Administration Non-Formulary Medication 1 each 02/06/18 22:00 Dorzolamide/Timolol/Pf [Dorzolamide-Timolol 2%-0.5%] OD BID [facility] Terazosin HCl 10 mg 02/06/18 22:00 02/07/18 21:13 Hytrin - PO 10 mg HS [facility] Administration ASSESSMENT/PLAN: Patient is an 82 year old male with a significant past medical history of hypertension, hyperlipidemia, diabetes and left eye blindness. Patient and state that patient was in his usual state of health last night and early this morning. However, later in the morning patient consumed his breakfast and then noticed that he began to move his head up and down as if he was stretching his neck. then noticed that patient leaned back and became lethargic. He then vomited up his breakfast and became pale and lethargic. reports that patient did not lose consciousness. She states that she lowered him to the floor and called 911. His blood sugar was 176 during the episode. Patient was initially seen at [place] ER and was transferred to [facility] after he had 3 abnormal EKG readings which showed STEMI. In [place], a code red was alerted and [facility] cardiac cath was contacted. [facility] ER attending discussed case with [facility] IR Dr Barnard and EKG was reviewed. At that time, no transfer to [facility] was recommended as patient did not have have chest pain and his troponins remain negative. It was felt that patient likely had repolarization. imagin. NSR 65, normal axis, normal intervals, YESSICA II, avF, leads v3-v6, QTc 405 2. NSR 67, no std/yessica, TWI avL, normal axis, normal intervals, QTc 409 Syncope and collapse. resolved Abnormal serial EKGs on admission. However, no events on tele, and no chest pain. troponins negative. Possible vasovagal event? Cardiology abnormal ekgs No c/o of chest pain or shortness of breath Patient denies any dizziness, jaw pain or nausea/vomiting. patient for stress test Friday Electrolyte imbalance Hypocalcemia, resolved hypomag, supplemented hypokalemia, resolved. Endocrine Diabetes hmga1c 8.0. repeat outpatient. will continue same meds on d/c. pt has a PCP in [place] and may need to start insulin. will defer to pcp. hold metformin for now and continue Novolog fen tolerating po monitor electrolytes diabetic diet prophy ambulation add heparin if pt los >48 hrs full code Visit type - Emergency Visit Emergency Visit: Yes ED Registration Date: 02/06/18 Care time: The patient presented to the Emergency Department on the above date and was hospitalized for further evaluation of their emergent condition. - New Patient This patient is new to me today: No - Critical Care Critical Care patient: No - Discharge Referral Referred to [facility] Med P.C.: No
[2018-02-08] MEDS ORDERED: PT OWN MED DRAWER 7, Y5N ONE (21:06)
[2018-02-08] MEDS: ATORVASTATIN CA 20 MG TABLET (FP) PO SCH (21:10)
[2018-02-08] MEDS: TERAZOSIN HCL 5 MG CAPSULE PO SCH (21:10)
[2018-02-08] MEDS: DONEPEZIL HCL 10 MG TABLET (FP) PO SCH (21:15)
[2018-02-08] MEDS: LATANOPROST 0.005% OPHTH SOLN 2.5ML BOTTLE OD SCH (21:16)
[2018-02-09] MEDS: INSULIN SLIDING SCALE (NOVOLOG) 1 VIAL SQ SCH ×3 (06:10→17:22)
[2018-02-09 09:28] LABS: BASO % 0.9 % (0-2.0); EOS % 1.9 % (0-4.5); HEMATOCRIT 34.9 % (35.4-49); HEMOGLOBIN 11.5 GM/dL (11.7-16.9); LYMPH % 36.5 % (8-40); MCH 32.8 pg (25.7-33.7); MCHC 32.9 g/dl (32.0-35.9); MEAN CELL VOLUME 99.8 fl (80-96); MEAN PLT VOLUME 8.6 fl (7.5-11.1); MONO % 8.5 % (3.8-10.2); NEUT % 52.2 % (42.8-82.8); PLATELET COUNT 158 K/MM3 (134-434); RDW 12.2 % (11.9-15.9); WHITE BLOOD COUNT 5.9 K/mm3 (4.0-10.0)
[2018-02-09 09:49] LABS: ALBUMIN 3.4 g/dl (3.4-5.0); ALK PHOS 73 U/L (45-117); ANION GAP 7 MMOL/L (8-16); BILIRUBIN,TOTAL 1.3 mg/dL (0.2-1); BLOOD UREA NITROGEN 24 mg/dL (7-18); CALCIUM 8.9 mg/dL (8.5-10.1); CHLORIDE 108 mmol/L (98-107); CO2 25 mmol/L (21-32); CREATININE 0.9 mg/dL (0.55-1.3); GLUCOSE,RANDOM 144 mg/dL (74-106); MAGNESIUM 1.7 mg/dL (1.8-2.4); SGOT/AST 12 U/L (15-37); SGPT/ALT 18 U/L (13-61); SODIUM 139 mmol/L (136-145); TOT PROT 6.7 g/dl (6.4-8.2)
[2018-02-09] MEDS: CALCIUM 500MG/VIT-D 200 UNITS COMBO TABLET (FP) PO SCH (09:55)
[2018-02-09] MEDS: amLODIPine BESYLATE 5 MG TABLET (FP) PO SCH (09:56)
[2018-02-09] MEDS: LISINOPRIL 20 MG TABLET (FP) PO SCH (09:56)
[2018-02-09 10:02] VITALS: PULSE 68
[2018-02-09] MEDS ORDERED: REGADENOSON 0.4 MG/5 ML PRE-FILLED SYRINGE IVPUSH ONE ×2 (11:15→12:15)
[2018-02-09 14:43] VITALS: BP 126/75; TEMP 97.5
--- NOTE | 2018-02-09 16:43 | DS ---
Physical Exam: SUBJECTIVE: Patient seen and examined OBJECTIVE: Vital Signs Period Temp Pulse Resp BP Sys/Hester Pulse Ox Last 24 Hr 97.5 F-98.2 F 65-75 16-18 104-135/58-75 95-96 PHYSICAL EXAM GENERAL: The patient is awake, alert, and fully oriented, in no acute distress. HEAD: Normal with no signs of trauma. EYES: PERRL, extraocular movements intact, sclera anicteric, conjunctiva clear. ENT: Ears normal, nares patent, oropharynx clear without exudates, moist mucous membranes. NECK: Trachea midline, full range of motion, supple. LUNGS: Breath sounds equal, clear to auscultation bilaterally, no wheezes, no crackles, no accessory muscle use. HEART: Regular rate and rhythm, S1, S2 without murmur, rub or gallop. ABDOMEN: Soft, nontender, nondistended, normoactive bowel sounds, no guarding, no rebound, no hepatosplenomegaly, no masses. EXTREMITIES: 2+ pulses, warm, well-perfused, no edema. NEUROLOGICAL: Cranial nerves II through XII grossly intact. Normal speech, gait not observed. PSYCH: Normal mood, normal affect. SKIN: Warm, dry, normal turgor, no rashes or lesions noted. LABS Laboratory Results - last 24 hr 02/08/18 02/08/18 02/09/18 16:58 21:08 05:47 WBC RBC Hgb Hct MCV MCH MCHC RDW Plt Count MPV Absolute Neuts (auto) Neutrophils % Lymphocytes % Monocytes % Eosinophils % Basophils % Nucleated RBC % Sodium Potassium Chloride Carbon Dioxide Anion Gap BUN Creatinine Creat Clearance w eGFR POC Glucometer 217 151 137 Random Glucose Calcium Magnesium Total Bilirubin AST ALT Alkaline Phosphatase Total Protein Albumin 02/09/18 02/09/18 08:50 08:50 WBC 5.9 RBC 3.50 L Hgb 11.5 L Hct 34.9 L MCV 99.8 H MCH 32.8 MCHC 32.9 RDW 12.2 Plt Count 158 MPV 8.6 Absolute Neuts (auto) 3.1 Neutrophils % 52.2 Lymphocytes % 36.5 Monocytes % 8.5 Eosinophils % 1.9 Basophils % 0.9 Nucleated RBC % 0 Sodium 139 Potassium 4.0 Chloride 108 H Carbon Dioxide 25 Anion Gap 7 L BUN 24 H Creatinine 0.9 Creat Clearance w eGFR > 60 POC Glucometer Random Glucose 144 H Calcium 8.9 Magnesium 1.7 L Total Bilirubin 1.3 H AST 12 L ALT 18 Alkaline Phosphatase 73 Total Protein 6.7 Albumin 3.4 HOSPITAL COURSE: Date of Admission:02/09/18 Date of Discharge: 02/09/18 Discharge Summary Reason For Visit: SYNCOPE Current Active Problems Anemia (Acute) Blindness of one eye (Acute) Diabetes (Acute) HTN (hypertension) (Acute) Hyperlipidemia (Acute) Pre-syncope (Acute) Sedentary lifestyle (Acute) Spinal arthritis (Acute) Syncope (Acute) Condition: Fair - Instructions - Home Medications Comprehensive Discharge Medication List: Ambulatory Orders Amlodipine Besylate 5 mg PO DAILY 02/06/18 Donepezil HCl 10 mg PO HS 02/06/18 Dorzolamide/Timolol/Pf [Dorzolamide-Timolol 2%-0.5%] 1 each OD BID 02/06/18 Latanoprost 0.005% Eye Drops [Xalatan 0.005% Eye Drops -] 1 drop OD HS 02/06/18 Lisinopril [Prinivil -] 40 mg PO DAILY 02/06/18 Metformin HCl [Glucophage] 1,000 mg PO DAILY 02/06/18 Simvastatin 40 mg PO HS 02/06/18 Terazosin HCl 10 mg PO HS 02/06/18 - Discharge Referral Referred to [facility] Med P.C.: No
--- NOTE | 2018-02-09 16:54 | DS ---
Physical Exam: SUBJECTIVE: Patient seen and examined OBJECTIVE: for discharge home with pcp follow up Vital Signs Period Temp Pulse Resp BP Sys/Hester Pulse Ox Last 24 Hr 97.5 F-98.2 F 65-75 16-18 104-135/58-75 95-97 PHYSICAL EXAM ed, in no acute distress. HEAD: Normal with no signs of trauma. EYES: left eye blindness EARS, NOSE, THROAT: Ears normal, nares patent, oropharynx clear without exudates. Moist mucous membranes. NECK: Normal range of motion, supple without lymphadenopathy, JVD, or masses. LUNGS: Breath sounds equal, clear to auscultation bilaterally. No wheezes, and no crackles. No accessory muscle use. HEART: Regular rate and rhythm ABDOMEN: Soft, nontender, not distended, normoactive bowel sounds, no guarding, no rebound, no masses. No hepatomegaly or splenomegaly. MUSCULOSKELETAL: Normal range of motion at all joints. No bony deformities or tenderness. No CVA tenderness. UPPER EXTREMITIES: No peripheral edema. LOWER EXTREMITIES: No peripheral edema. NEUROLOGICAL: Normal speech. Normal gait. PSYCHIATRIC: Cooperative. Good eye contact. Appropriate mood and affect. SKIN: Warm, dry, normal turgor, no rashes or lesions noted, normal capillary refill. LABS Laboratory Results - last 24 hr 02/08/18 02/08/18 02/09/18 16:58 21:08 05:47 WBC RBC Hgb Hct MCV MCH MCHC RDW Plt Count MPV Absolute Neuts (auto) Neutrophils % Lymphocytes % Monocytes % Eosinophils % Basophils % Nucleated RBC % Sodium Potassium Chloride Carbon Dioxide Anion Gap BUN Creatinine Creat Clearance w eGFR POC Glucometer 217 151 137 Random Glucose Calcium Magnesium Total Bilirubin AST ALT Alkaline Phosphatase Total Protein Albumin 02/09/18 02/09/18 08:50 08:50 WBC 5.9 RBC 3.50 L Hgb 11.5 L Hct 34.9 L MCV 99.8 H MCH 32.8 MCHC 32.9 RDW 12.2 Plt Count 158 MPV 8.6 Absolute Neuts (auto) 3.1 Neutrophils % 52.2 Lymphocytes % 36.5 Monocytes % 8.5 Eosinophils % 1.9 Basophils % 0.9 Nucleated RBC % 0 Sodium 139 Potassium 4.0 Chloride 108 H Carbon Dioxide 25 Anion Gap 7 L BUN 24 H Creatinine 0.9 Creat Clearance w eGFR > 60 POC Glucometer Random Glucose 144 H Calcium 8.9 Magnesium 1.7 L Total Bilirubin 1.3 H AST 12 L ALT 18 Alkaline Phosphatase 73 Total Protein 6.7 Albumin 3.4 HOSPITAL COURSE: Date of Admission:02/09/18 Date of Discharge: 02/09/18 Patient is an 82 year old male with a significant past medical history of hypertension, hyperlipidemia, diabetes and left eye blindness. Patient placed under observation after he experienced a pre syncopal episode with LOC while eating breakfast. Patient was initially seen at [place] [facility] and was transferred to [facility] after he had 3 abnormal EKG readings which showed STEMI. In [place], a code red was alerted and [facility] cardiac cath was contacted. [facility] ER attending discussed case with [facility] Dr Barnard and EKG was reviewed. At that time, no transfer to [facility] was recommended as patient did not have have chest pain and his troponins remain negative. It was felt that patient likely had repolarization. Problem list by hospital course. imagin. NSR 65, normal axis, normal intervals, RYNE II, avF, leads v3-v6, QTc 405 2. NSR 67, no std/ryne, TWI avL, normal axis, normal intervals, QTc 409 3. nuclear stress test, negative Syncope and collapse. resolved Abnormal serial EKGs on admission. However, no events on tele, and no chest pain. troponins negative. Stress test negative. Possible vasovagal event? Patient advised to adequately hydrate and monitor his BGMs at home. Cardiology abnormal ekgs No c/o of chest pain or shortness of breath Patient denies any dizziness, jaw pain or nausea/vomiting. Negative stress test. outpatient follow up with cardiology. Electrolyte imbalance Hypocalcemia, resolved hypomag, supplemented hypokalemia, resolved. Endocrine Diabetes hmga1c 8.5. repeat outpatient. will continue same meds on d/c. pt has a PCP in [place] and may need to start insulin. will defer to pcp. Continuehome metformin. discussed with son and . full code Minutes to complete discharge: 60 Discharge Summary Reason For Visit: SYNCOPE Current Active Problems Anemia (Acute) Blindness of one eye (Acute) Diabetes (Acute) HTN (hypertension) (Acute) Hyperlipidemia (Acute) Pre-syncope (Acute) Sedentary lifestyle (Acute) Spinal arthritis (Acute) Syncope (Acute) Condition: Improved - Instructions Diet, Activity, Other Instructions: Mr Araiza: You were placed under observation and evaluated for Syncope and we noted that you had changes on your EKG. We have evaluated you and will be sending you home today after your stress test was negative. Please follow up with your primary care doctor for post hospital follow up. Here are our recommendations. Syncope: Please continue to hydrate and eat 3 meals daily. Check your blood sugars at least 3 times before meals. We did a HmgA1c (8.5%) which showed that your blood sugars have been high in the last 3 months. Please have this blood test repeated as you may need insulin or adjustment of your medications. Chest pain: Your cardiac workup was negative. IF you have chest pain, please go to your nearest emergency room. New medications: Over the counter multivitamin recommended Glucerna twice per day Please call me if you have any questions. [facility] [phone] Referrals: Kwame Quinones MD [Staff Physician] - 1 Week Disposition: HOME - Home Medications Comprehensive Discharge Medication List: Ambulatory Orders Amlodipine Besylate 5 mg PO DAILY 02/06/18 Donepezil HCl 10 mg PO HS 02/06/18 Dorzolamide/Timolol/Pf [Dorzolamide-Timolol 2%-0.5%] 1 each OD BID 02/06/18 Latanoprost 0.005% Eye Drops [Xalatan 0.005% Eye Drops -] 1 drop OD HS 02/06/18 Lisinopril [Prinivil -] 40 mg PO DAILY 02/06/18 Metformin HCl [Glucophage] 1,000 mg PO DAILY 02/06/18 Simvastatin 40 mg PO HS 02/06/18 Terazosin HCl 10 mg PO HS 02/06/18 Calcium 500Mg/Vit-D 200 Units [Os-Scooter 500+D -] 1 tab PO BID #0 tab 02/09/18 This patient is new to me today: No Emergency Visit: Yes ED Registration Date: 02/09/18 Care time: The patient presented to the Emergency Department on the above date and was hospitalized for further evaluation of their emergent condition. Critical Care patient: No - Discharge Referral Referred to [facility] No
== END 2018-02-09 18:33 | disposition home or self-care (01) ==
LOC: FER 10:54 → UNDOADMOB 16:00 → INTOOBSV 16:00 → J4S 16:00
PROVIDERS: ADMIT Internal Medicine; ATTEND Nurse Practitioner Family
PROC: 3E033GC Introduction of Other Therapeutic Substance into Peripheral Vein, Percutaneous Approach (ICD-10-PCS; principal; 2018-02-09)
PROC: 3E013VG Introduction of Insulin into Subcutaneous Tissue, Percutaneous Approach (ICD-10-PCS; 2018-02-09)
DX: R55 Syncope and collapse (principal); I10 Essential (primary) hypertension; E78.5 Hyperlipidemia, unspecified; E11.9 Type 2 diabetes mellitus without complications; R94.31 Abnormal electrocardiogram [ECG] [EKG]; E83.51 Hypocalcemia; H54.40 Blindness, one eye, unspecified eye; D64.9 Anemia, unspecified; M47.819 Spondylosis without myelopathy or radiculopathy, site unspecified; Z91.89 Other specified personal risk factors, not elsewhere classified; Z79.4 Long term (current) use of insulin
CPT/HCPCS: 36415; 71045-TC-FY; 78452-TC; 80053; 80061; 82550; 82962; 83036; 83721; 83735; 84100; 84443; 84484; 85025; 93005; 93010; 93017; 93306-TC; 96372; 96374; 96375; 99283-25; A9502; G0378; J2785